=== PATIENT | female | born 1985 | race Caucasian/White ===

== ENCOUNTER 2018-11-24 04:59 | Inpatient (IN) ==
--- NOTE | 2018-11-21 12:53 | HP ---
Chief Complaint - Chief Complaint Date of Service: 11/21/18 Time of Service: 12:43 Chief Complaint: RLTCS History of Present Illness: 33 yo at 38 5/7 weeks presents for repeat section on 11/24/18 at 39 1/7 weeks. This complicated by CF carrier (FOB negative) and prior c/s x 2. Rh positive Rubella immune GBS negative Medical History (Updated 05/15/18 @ 13:46 by Heather Rodriguez RN) Abnormal Pap smear of cervix Onset Date: Unknown Atypical squamous cells of undetermined significance (ASCUS) on Papanicolaou smear of cervix Onset Date: 04/19/12 HPV (human papilloma virus) infection Onset Date: 04/19/12 Low grade squamous intraepithelial lesion (LGSIL) on Papanicolaou smear of cervix Onset Date: 12/12/12 Anemia Onset Date: ~2013 w/pregnancies [place] teeth extracted Onset Date: ~2000 Surgical History: Surgical History (Updated 05/15/18 @ 16:41 by Giovany Lopez DO) Previous section (Chronic) C/S x 2 History of colposcopy Onset Date: Unknown History of tonsillectomy Onset Date: ~2008 Previous section Onset Date: 12/11/13 12/11/13 & 09/16/15 Family History: Family History (Updated 05/15/18 @ 13:50 by Heather Rodriguez RN) Mother Diabetes Grandfather Cancer Grandmother Diabetes Sister Cystic fibrosis CF carrier Gestational diabetes x2 Cardiac septal defect resolved Father Arthritis Grandmother Heart disease Social History: Preferred Language [place] Smoking Status Never smoker (Last Updated 11/21/18 @ 10:05 by Giovany Lopez DO) No Social History Section defined Review Of Systems (GEN) - Review of Systems Generalized/Overall Review: Present: No Symptoms Reported EENTM: Present: No Symptoms Reported Respiratory: Present: No Symptoms Reported Cardiac: Present: No Symptoms Reported Abdominal: Present: No Symptoms Reported Genitourinary: Present: No Symptoms Reported Musculoskeletal: Present: No Symptoms Reported Neurological: Present: No Symptoms Reported Skin: Present: No Symptoms Reported Endocrine: Present: No Symptoms Reported Allergies/Adverse Reactions: Allergies Allergy/AdvReac Type Severity Reaction Status Date / Time No Known Allergies Allergy Verified 10/19/18 10:35 Home Medications: HOME MEDICATIONS Vits96/Iron Fum/Folic [ S] 1 tab PO DAILY 12/11/13 [Last Taken Unknown] calcium carbonate 500 mg calcium (1,250 mg) chewable tablet 1,000 mg PO DAILY tab 06/08/18 [Last Taken Unknown] ferrous sulfate 325 mg (65 mg iron) tablet 325 mg PO DAILY tab 06/08/18 [Last Taken Unknown] docusate sodium 100 mg capsule 100 mg PO DAILY 07/20/18 [Last Taken Unknown] ascorbic acid (vitamin C) 500 mg tablet 500 mg PO DAILY 09/12/18 [Last Taken Unknown] breast pump See Dose Instructions .ROUTE .MEDSUPPLY #1 ea 10/31/18 [Last Taken Unknown] Exam - Exam Vital Signs: 11/21/18 Height 1.61 m 11/21/18 Weight 90.1 kg 11/21/18 Body Mass Index (BMI) 34.7 11/21/18 Blood Pressure 110/78 11/21/18 Respiratory Rate 16 11/21/18 Pulse Rate 101 H 11/21/18 Temperature 36.2 C 11/21/18 O2 Sat by Pulse Oximetry 99 Constitutional: Present: Alert, Oriented x3, Cooperative ENT Exam: Present: hearing grossly normal Breasts: Present: Exam deferred Respiratory: Present: lungs clear, no respiratory distress Cardiovascular/Chest: Present: regular rate, rhythm, no edema Abdomen: Present: soft, nontender, no rebound tenderness, other - gravid /Rectal: Present: Exam deferred Extremity: Present: no pedal edema, no calf tenderness Skin Exam: Present: normal color, warm/dry, no cyanosis Neurologic: Present: alert, normal mood/affect, oriented x 3 Appearance: Present: appropriate appearance, appropriate insight Eye contact: Present: cooperative, good eye contact, normal speech Thoughts: Present: normal thought pattern, no apparent hallucination Assessment/Plan - Assessment/Plan (1) Previous section Assessment: Admit for RLTCS with abdominal scar revision. Problem: Chronic
[2018-11-24] MEDS ORDERED: DEXTROSE 5%-LACTATED RINGERS 1,000 ML IV PRN (05:04)
[2018-11-24] MEDS ORDERED: OXYTOCIN 20 UNITS in RINGER'S SOLUTION,LACTATED 1,000 ML IV ONE (05:04)
[2018-11-24] MEDS ORDERED: ceFAZolin SODIUM/DEXTROSE,ISO 2 GM/50 ML BAG IV ONE (05:04)
[2018-11-24] MEDS: RINGER'S SOLUTION,LACTATED 1,000 ML IV PRN ×2 (05:34→06:38)
[2018-11-24 05:41] LABS: Cocaine Ur Negative (NEGATIVE); Urine Barbiturate Negative (NEGATIVE); Urine Benzodiazepines Negative (NEGATIVE); Urine Opiates Negative (NEGATIVE); Urine PCP Negative (NEGATIVE); Urine THC Negative (NEGATIVE)
--- NOTE | 2018-11-24 07:24 | ANES ---
Anesthesia Pre Procedure Eval Vitals/Labs: Last Vital Signs Temp 36.4 C 11/24/18 05:23 Pulse 84 11/24/18 05:23 Resp 16 11/24/18 05:23 BP 114/78 11/24/18 05:23 Pulse Ox 97 11/24/18 05:23 HOME MEDICATIONS Vits96/Iron Fum/Folic [ S] 1 tab PO DAILY 12/11/13 [Last Taken 11/23/18] calcium carbonate 500 mg calcium (1,250 mg) chewable tablet 1,000 mg PO DAILY tab 06/08/18 [Last Taken 11/23/18] ferrous sulfate 325 mg (65 mg iron) tablet 325 mg PO DAILY tab 06/08/18 [Last Taken 11/23/18] docusate sodium 100 mg capsule 100 mg PO DAILY 07/20/18 [Last Taken 11/23/18] ascorbic acid (vitamin C) 500 mg tablet 500 mg PO DAILY 09/12/18 [Last Taken 11/23/18] Allergies/Adverse Reactions: Allergies Allergy/AdvReac Type Severity Reaction Status Date / Time No Known Allergies Allergy Verified 10/19/18 10:35 - Planned Procedure Planned Procedure: Repeat / poss. Abdominal Scar Revision Medication List Reviewed:: Yes Allergies Verified: Yes Medical History (Updated 11/21/18 @ 12:53 by Giovany Lopez DO) Abnormal Pap smear of cervix Onset Date: Unknown Atypical squamous cells of undetermined significance (ASCUS) on Papanicolaou smear of cervix Onset Date: 04/19/12 HPV (human papilloma virus) infection Onset Date: 04/19/12 Low grade squamous intraepithelial lesion (LGSIL) on Papanicolaou smear of cervix Onset Date: 12/12/12 Anemia Onset Date: ~2013 w/pregnancies [place] teeth extracted Onset Date: ~2000 Surgical History (Updated 11/21/18 @ 12:53 by Giovany Lopez DO) Previous section (Chronic) C/S x 2 History of colposcopy Onset Date: Unknown History of tonsillectomy Onset Date: ~2008 Previous section Onset Date: 12/11/13 12/11/13 & 09/16/15 Family History (Updated 05/15/18 @ 13:50 by Heather Rodriguez RN) Mother Diabetes Grandfather Cancer Grandmother Diabetes Sister Cystic fibrosis CF carrier Gestational diabetes x2 Cardiac septal defect resolved Father Arthritis Grandmother Heart disease - Family Anesthesia History Family History:: no untoward family reactions to anesthesia, no familial bleeding tendencies, no family history of clotting disorders, no family history of premature - Airway/Neck/Teeth Within Normal Limits:: Yes Teeth Condition: intact Mallampatti Score: 1 Thyromental (T-M) distance: > 6 cm Mandibulo Hyoid distance: > 3 cm - Respiratory Respiratory Physical: lungs clear Smoking Status: Never smoker Discussed smoking cessation including day of surgery: No Sleep Apnea currently treated: No Sleep Apnea by current assessment: No Discussed Risks/Treatment of LYNNE: No - Cardiovascular Tolerate Activity: Good Heart Sounds: S1 & S2, Regular - Anesthesia Assessment and Plan ASA Class: PS, II Anesthesia Type Plan: Block - Bilateral ultrasound guided TAP blocks for postop analgesia, Spinal
[2018-11-24] MEDS ORDERED: SENNOSIDES 8.6 MG TABLET PO PRN (09:08)
[2018-11-24] MEDS ORDERED: ONDANSETRON HCL/PF 2 MG/ML VIAL IV PRN (09:08)
[2018-11-24] MEDS ORDERED: IBUPROFEN 800 MG TABLET PO PRN (09:08)
[2018-11-24] MEDS ORDERED: SIMETHICONE 80 MG TAB.CHEW PO PRN (09:08)
[2018-11-24] MEDS ORDERED: BISACODYL 10 MG SUPP.RECT RC PRN (09:08)
--- NOTE | 2018-11-24 09:12 | OR ---
Operative Report - Dictated Report Narrative: Indication: 33-year-old 3 para 2 at 39 2/7 weeks presents for repeat low transverse section status: Planned Pre Operative Diagnosis: 39-2/7 week intrauterine . Prior section 2. Post Operative Diagnosis: Same. Procedure: Repeat low transverse section. Abdominal scar revision - 16cm Surgeon: Sparkle Lopez DO Medical Record Specialist: OR Staff Anesthesia: Spinal, TAP block Estimated Blood Loss: 700 mL Urine Output: 100 mL clear urine Fluids Replacement: 1600 mL of crystalloid Drains: Henry to gravity Surgical Complications: None Specimens: Placenta to freezer Findings: Male born at 0808 on 11/24/2019 in cephalic presentation with Apgars 9 and 9, weighing 4329 g. Normal uterus, tubes, ovaries Technique: The patient was taken to the operating room and placed in dorsal supine position with a left lateral tilt. After adequate spinal anesthesia, henry catheter inserted, SCDs placed, and 2 g of Ancef given preoperatively, the previous scar was excised in an elliptical fashion and the abdominal cavity was entered using sharp and blunt dissection. Two rolled laps were placed in the pericolic gutters on either side of the uterus. A transverse incision was made in the lower uterine segment and extended laterally and upwardly with digital traction. Clear fluid was noted upon amniotomy. The was delivered easily. The cord was clamped and cut and was handed off to awaiting qualified craft worker electrician. The placenta was allowed to deliver spontaneously. The uterus was cleared of clot and debris. Uterine incision was closed with 0 Vicryl using a running stitch. A second imbricating layer was placed. 2 [id number] 0 Vicryl sutures were placed in the middle and left side of the incision to provide hemostasis. After excellent hemostasis was noted, the rolled laps were removed from the abdominal cavitiy. The peritoneum was closed with a running 3- 0 Monocryl. The same suture was used to approximate the rectus and pyramidalis muscles. The fascia was closed with a running 0 Vicryl. The subcutaneous layer was closed with a running 3-0 Monocryl. The same suture was used to approximate the subdermal layer. The skin was closed with a running 4-0 Monocryl and Dermabond. Sponge, lap, needle, and instrument count were correct x 2. Disposition: To post anesthesia care unit in good condition
--- NOTE | 2018-11-24 09:13 | PN ---
Progess Note - Interim Date: 11/24/18 Time: 09:13 History for MU History for MU Definition: * The number of deliveries resulting in a live the patient experienced prior to current hospitalization * The previous delivery of live twins or any live multiple gestation is considered one live event. *If primagravida or nulliparous is documented select zero for the number of previous live births. Live Events: Live Events: 2
--- NOTE | 2018-11-24 09:24 | ANES ---
Post Anesthesia Discharge - Transfer of Care Transfer of Care handoff given to nurse: Yes - Discharge from PACU Discharge from PACU when meets criteria: Yes - Discharge to ASU Discharge to ASU-no complications/pt stable: Yes
--- NOTE | 2018-11-24 09:28 | ANES ---
Anesthesia Procedure Note Procedure Note: ANESTHESIA PROCEDURE NOTE Date of Procedure: 11/24/2018. Time of procedure: 909. Performed by: Juanito Reyna CRNA Transformation Specialist: None. Preprocedure diagnosis: 39 2/7 intrauterine , prior x2. Post procedure diagnosis: Same. Procedure: Bilateral ultrasound-guided transversus abdominis plane block for postop analgesia. Indications: The patient is a 33-year-old female post section. Findings: See below. Details of the procedure: ChloraPrep was used on the patient's abdomen and the procedure was performed under sterile technique. The right abdominal fascial layer between the internal oblique muscle and the transversus abdominis muscles was identified under ultrasound guidance. A 21-gauge 4 inch block needle was inserted under ultrasound guidance to the target fascial plane. 15 mL's of 0.5% bupivacaine plus epinephrine 1:200,000 was injected after negative aspiration for blood. The needle was removed intact and the procedure was then repeated at the left side. No complications were noted. The images were retained in the hospital medical database. EBL: Minimal. Fluids: N/A. Specimen: N/A. Post procedure condition: The patient tolerated the procedure well. No complications were noted. Thank you for this consultation. Juanito Reyna CRNA
[2018-11-24] MEDS: DOCUSATE SODIUM 100 MG CAPSULE PO SCH ×2 (09:51→21:07)
[2018-11-24] MEDS: oxyCODONE HCL/ACETAMINOPHEN 1 TAB TABLET PO PRN ×4 (09:57→23:16)
--- NOTE | 2018-11-24 10:48 | ANES ---
Post Anesthesia Assessment - Vital Signs Vitals: Last Vital Signs Temp 36.7 C 11/24/18 09:32 Pulse 88 11/24/18 10:17 Resp 18 11/24/18 10:17 BP 120/65 11/24/18 10:17 Pulse Ox 100 11/24/18 10:17 Airway Patency: Normal - Mental Status Level Of Consciousness: Awake - Pain Level Pain Score: 0 - N/V Assessment Nausea/Vomiting Presence: None Dehydration:: No
[2018-11-24] MEDS: ENOXAPARIN SODIUM 40 MG/0.4 ML SYRG SC SCH (17:52)
[2018-11-24] MEDS: IBUPROFEN 800 MG TABLET PO PRN (21:06)
[2018-11-25] MEDS: oxyCODONE HCL/ACETAMINOPHEN 1 TAB TABLET PO PRN ×5 (02:51→20:19)
[2018-11-25] MEDS: IBUPROFEN 800 MG TABLET PO PRN ×3 (06:31→20:20)
[2018-11-25] MEDS: DOCUSATE SODIUM 100 MG CAPSULE PO SCH ×2 (10:32→20:19)
--- NOTE | 2018-11-25 15:56 | PN ---
Subjective - Date and Time Seen Date: 11/25/18 Time: 15:53 Objective - Vitals Vitals: Last Vital Signs Temp 36.5 C 11/25/18 14:38 Pulse 78 11/25/18 14:38 Resp 14 11/25/18 14:38 BP 117/69 11/25/18 14:38 Pulse Ox 95 11/25/18 00:32 Tolerating regular diet. Ambulating without difficulty. Pain well controlled. Lochia wnl. Breast-feeding Abdomen - soft, appropriately tender Incision - clean, dry, intact Uterus - firm, at umbilicus -1 No calf tenderness Impression: Post op day #1 s/p section. Plan: Continue routine post-operative/ care Cauti Physician Documentation - Urinary Catheter Management Urethral (Erazo) Date of Insertion: 11/24/18 Time of Insertion: 07:40 Assessment/Plan - Problems/Diagnosis (1) Previous section Problem: Chronic
[2018-11-25] MEDS: ENOXAPARIN SODIUM 40 MG/0.4 ML SYRG SC SCH (17:16)
[2018-11-26] MEDS: oxyCODONE HCL/ACETAMINOPHEN 1 TAB TABLET PO PRN ×3 (03:31→21:03)
[2018-11-26] MEDS: IBUPROFEN 800 MG TABLET PO PRN ×3 (03:31→16:54)
--- NOTE | 2018-11-26 09:18 | PN ---
Subjective - Date and Time Seen Date: 11/26/18 Time: 09:17 Objective - Vitals Vitals: Last Vital Signs Temp 36.9 C 11/26/18 07:50 Pulse 76 11/26/18 07:50 Resp 14 11/26/18 07:50 BP 103/58 11/26/18 07:50 Pulse Ox 98 11/26/18 07:50 Patient denies complaints. Ambulating well. Tolerating regular diet. Pain well controlled. Breast feeding well Lochia wnl. Abdomen - soft, appropriately tender Incision - clean, dry, intact Uterus - firm, at umbilicus -2 No calf tenderness Impression: Post op day #2 s/p repeat section. Abdominal scar revision Plan: Continue routine post-operative/ care Cauti Physician Documentation - Urinary Catheter Management Urethral (Erazo) Date of Insertion: 11/24/18 Time of Insertion: 07:40 Assessment/Plan - Problems/Diagnosis (1) Previous section Problem: Chronic
[2018-11-26] MEDS: DOCUSATE SODIUM 100 MG CAPSULE PO SCH ×2 (10:46→21:03)
[2018-11-26] MEDS: ENOXAPARIN SODIUM 40 MG/0.4 ML SYRG SC SCH (17:40)
[2018-11-27] MEDS: oxyCODONE HCL/ACETAMINOPHEN 1 TAB TABLET PO PRN (03:24)
[2018-11-27] MEDS: IBUPROFEN 800 MG TABLET PO PRN ×2 (03:24→10:27)
[2018-11-27 07:59] VITALS: BP 117/72
--- NOTE | 2018-11-27 09:08 | PN ---
Subjective - Date and Time Seen Date: 11/27/18 Time: 09:07 Objective - Vitals Vitals: Last Vital Signs Temp 36.2 C 11/27/18 07:53 Pulse 72 11/27/18 07:53 Resp 18 11/27/18 07:53 BP 117/72 11/27/18 07:53 Pulse Ox 99 11/27/18 07:53 Patient denies complaints. Ambulating without difficulty. Tolerating regular diet. Pain well controlled. Lochia wnl. Abdomen - soft, appropriately tender Incision -clean, dry, intact uterus - firm, at umbilicus -3 no calf tenderness Impression: Post op day #3 s/p repeat section. Abdominal scar revision Plan: Routine discharge instructions Cauti Physician Documentation - Urinary Catheter Management Urethral (Erazo) Date of Insertion: 11/24/18 Time of Insertion: 07:40 Assessment/Plan - Problems/Diagnosis (1) Previous section Problem: Chronic
[2018-11-27] MEDS: DOCUSATE SODIUM 100 MG CAPSULE PO SCH (09:51)
== END 2018-11-27 11:50 | disposition home or self-care (01) | DRG 788 ==
LOC: OB 04:59
PROVIDERS: ADMIT Obstetrics & Gynecology; ATTEND Obstetrics & Gynecology
CPT/HCPCS: 59025; 80307